=== PATIENT | female | born 1985 | race Caucasian/White ===

== ENCOUNTER 2017-03-23 13:32 | Emergency (ER) | payer OTHER ==
[~2017-03-23] VITALS: Ht 152.4 cm; Wt 60.0 kg
[2017-03-23 13:48] VITALS: BP 123/71; PULSE 77; RESP 15; O2SAT 95
--- NOTE | 2017-03-23 15:55 | ED.REPORT ---
HPI-General Illness Date of Service Mar 23, 2017 ED Provider: Doc,Ed Aaron is an otherwise healthy 31-year-old female presenting with chief complaint of fingernail avulsion. Patient reports she was attempting to repair a screen door when she partially tore off her left middle fingernail. She states her last tetanus shot was approximately 5 years ago. She denies comorbidities such as diabetes, HIV or immunosuppressive drugs. Nursing Notes Stated Complaint: FINGER LACERATION Chief Complaint: Extremity Trauma Nursing Notes Reviewed: Yes Allergies: Coded Allergies: Sulfa (Sulfonamide Antibiotics) (Verified Allergy, Severe, Anaphylaxis, ) cefepime (Verified Allergy, Severe, Anaphylaxis, 03/23/17) erythromycin base (Verified Allergy, Intermediate, Rash, 03/23/17) Scheduled PRN Hydrocodone-Acetaminophen 5-325 mg (Hydrocodone-Acetaminophen 5-325 mg) 1 Each Tablet 1-2 TABLET PO Q4H PRN PRN For Pain General Time Seen by MD: 15:05 Chief Complaint Other (fingernail avulsion) Past Medical History Past Medical History Denies Review of Systems Negative unless stated otherwise in history of present illness Physical Exam General: Well appearing, well developed, well nourished, no acute distress. Left hand: Middle finger nail is partially avulsed with the radial aspect of the nail displaced to the midline of the proximal fold. Negative bleeding. Sensation and brisk capillary refill are intact. Excellent range of motion in all joints. Acrylic nails are intact. Head: Atraumatic, normocephalic. Eyes: No scleral icterus or injection. No discharge. Vision grossly intact. ENT: Voice clear, hearing grossly intact. Respiratory: No respiratory distress, no increased work of breathing. Speaks in complete sentences. Skin: Warm and dry. Neurological: Grossly nonfocal. Psychological: alert and oriented. Speech appropriate, linear and logical. Behavior appropriate. Vital Signs Vital Signs Date Time Temp Pulse Resp B/P Pulse Ox O2 Delivery O2 Flow Rate FiO2 03/23/17 13:48 37.3 77 15 123/71 95 Room Air Procedures Laceration Nailbed Mgmt Laceration Nailbed Management: Left middle partially avulsed nail. Nail was replaced and the nail bed and secured with a single suture through the nail on the lateral aspect Procedure Performed by: Allied health pract (MAURIZIO Easley) Consent / Setup / Site Prep: Consent from patient Digit Involved: Middle finger left Wound Length: 1 cm Local Anesthesia: Lidocaine 1% Digital Block Procedure: Four digital nerve block, Lidocaine 1%, 4cc, Anesthesia obtained Wound Preparation: Betadine, Normal saline # Sutures - Skin: 1 Miscellaneous: Nailplate suture in place, Nail fold integrity intac Post-Procedure / Complications: Antibiotic oint applied, Dressing applied, No complications, Condition improved, Tolerated procedure well, Patient stable Re-Eval/Medical Decision Med Decision/Clinical Course Otherwise only 31-year-old female up-to-date on tetanus presents with a partially avulsed left middle fingernail. Neurovascularly intact. Minimal bleeding. Nail was replaced in the bed and secured with a single stitch per procedure note. Dressed with splint, antibiotic ointment, gauze. Advised regarding wound care, primary care follow-up. Advised regarding over-the- counter analgesia provided a small amount of [place] to supplement his return precautions. Patient is from [place] and will return to her primary care provider for suture removal. Provided emergency return precautions. Patient verbalizes understanding of and consent to the plan. Discharge & Departure Primary Impression: Fingernail avulsion, partial Encounter type: initial encounter Qualified Code: S61.309A - Unspecified open wound of unspecified finger with damage to nail, initial encounter Disposition: Home Discharge Condition All VS Reviewed: Yes Condition: Stable Additional Instructions: Evaluation in the emergency department for a fingernail avulsion. This appears to be a clean wound. I see no indication for antibiotics at this time. you have told me that you are up-to-date on your tetanus shot. We have cleaned, the wound, replaced the nail and added one stitch to keep it in place. We have dressed the with antibiotic ointment and gauze. Please leave this dressing on and dry for the next 24 hours. After that you can remove the dressing, clean with soap and water and then reapply antibiotic ointment and gauze or Band-Aid. Please do not submerge the wound as in washing dishes, swimming or soaking in a tub until you have the sutures removed. The pain is best treated with 400 mg of ibuprofen (Advil, Motrin) every 6 hours , or 1000 mg of acetaminophen (Tylenol) every 6 hours. These drugs can be taken at the same time for more severe pain. I have written a prescription for a small amount of hydrocodone/acetaminophen 5/ 325 mg which can be SUBSTITUTED for the Tylenol to treat more severe pain. Do not take them together, and do not drink alcohol or operate a vehicle within 4 hours of taking this medication. Be vigilant for signs of infection. While a small amount of redness, tenderness and clear or pink drainage is normal, any increasing pain, redness, swelling or the appearance of pus suggests infection. More severe infection as suggested by symptoms such as fever, chills, feeling ill, racing heart. Please return to emergency Department if you notice signs of infection. Follow-up with your primary care provider or return to the emergency department in 7 days for suture removal. Enjoy your weekend and have a safe trip back to [place] Referrals: [facility] (PCP) Moo Easley PA-C Mar 23, 2017 15:55
[2017-03-23] MEDS ORDERED: HYDR-4003 PO (16:38)
[2017-03-23] MEDS ORDERED: HYDROcodone-APAP 5-325 mg Tablet PO ONE (16:40)
== END 2017-03-23 17:30 | disposition home or self-care (01) ==
LOC: SED 13:32
DX: S61.303A Unspecified open wound of left middle finger with damage to nail, initial encounter (principal); W26.8XXA Contact with other sharp object(s), not elsewhere classified, initial encounter; Y93.69 Activity, other involving other sports and athletics played as a team or group; Y92.019 Unspecified place in single-family (private) house as the place of occurrence of the external cause; Y99.0 Civilian activity done for income or pay; Z88.1 Allergy status to other antibiotic agents; Z88.2 Allergy status to sulfonamides; Z88.8 Allergy status to other drugs, medicaments and biological substances